=== PATIENT | female | born 1965 | race Caucasian/White ===

== ENCOUNTER 2019-01-03 12:30 | Inpatient (IN) | payer OTHER ==
[~2019-01-03] VITALS: Ht 152.4 cm; Wt 52.6 kg
[~2019-01-03 12:30] MED LIST: ALLEGRA ALLERG180 MG PO; ATENOLOL25 MG PO; CLONAZEPAM1 MG PO; COLACE100 MG PO; FLAGYL500MG PO; FLONASE16 GM NASAL; PERCOCET 5/3251 TAB PO
[2019-01-03] MEDS ORDERED: TENORMIN25 MG PO (13:44)
[2019-01-03] MEDS ORDERED: PROTONIX40 MG PO (13:45)
[2019-01-03] MEDS ORDERED: HORIZANT300 MG PO (13:45)
== END 2019-01-12 16:50 | DRG 470 ==
LOC: O/R 14:00 → SURH 01-10 06:57
PROVIDERS: ADMIT Orthopaedic Surgery
PROC: 0SRR0J9 Replacement of Right Hip Joint, Femoral Surface with Synthetic Substitute, Cemented, Open Approach (ICD-10-PCS; principal; 2019-01-10 13:00)
DX: M16.11 Unilateral primary osteoarthritis, right hip (principal); D62 Acute posthemorrhagic anemia; D69.49 Other primary thrombocytopenia; I10 Essential (primary) hypertension

== ENCOUNTER 2019-04-17 13:03 | Outpatient (CLI) | payer OTHER ==
[~2019-04-17 13:03] MED LIST changes: +HORIZANT300 MG PO; +PROTONIX40 MG PO; +TENORMIN25 MG PO
== END 2019-04-17 13:22 | disposition home or self-care (01) ==
LOC: RAD 13:03
DX: M79.641 Pain in right hand (principal)

== ENCOUNTER 2019-10-26 07:33 | Inpatient (IN) | payer OTHER ==
[~2019-10-26] VITALS: Ht 152.4 cm; Wt 52.6 kg
[~2019-10-26 07:33] MED LIST changes: +CLONAZEPAM1 M1 PO; +MOTRIN IB200 MG PO; +PEPCID AC20 MG PO
[2019-10-31] MEDS ORDERED: GABAPENTIN600 MG PO (09:24)
[2019-10-31] MEDS ORDERED: IBUPROFEN800 MG PO (09:25)
== END 2019-11-02 17:03 | DRG 470 ==
LOC: SURG 10-31 06:05 → O/R 10-31 06:05 → SURH 10-31 07:00 → O/R 10-31 11:15 → SURG 10-31 15:26
PROVIDERS: ADMIT Orthopaedic Surgery; ATTEND Orthopaedic Surgery
PROC: 0SRB0JA Replacement of Left Hip Joint with Synthetic Substitute, Uncemented, Open Approach (ICD-10-PCS; principal; 2019-10-31 07:00)
DX: M16.12 Unilateral primary osteoarthritis, left hip (principal); D62 Acute posthemorrhagic anemia; I10 Essential (primary) hypertension